=== PATIENT | female | born 1960 | race Hispanic/Latino ===

== ENCOUNTER 2019-01-15 11:22 | Observation (INO) | payer BC ==
[2019-01-14 13:24] VITALS: BP 119/75
[~2019-01-15] VITALS: Ht 160 cm; Wt 67.0 kg
[2019-01-15] VITALS (19 sets, daily range): BP systolic 107–138; BP diastolic 62–90
[~2019-01-15 11:22] MED LIST: AMLO10TA7 PO; ASPI-555 PO; ATOR20TA65 PO; FOLI1TAB15 PO; GOLI50DI SQ; LATA2.5D2 OU; RALO60TA13 PO
[2019-01-15] MEDS ORDERED: LACTATED RINGERS 1000ML 1,000 ML IV ONE (12:53)
[2019-01-15] MEDS ORDERED: BUPIVACAINE/PF 0.25% 30ML VIAL IJ ONE (13:16)
[2019-01-15] MEDS ORDERED: LIDOCAINE HCL 1% 20 ML VIAL ONE (13:17)
[2019-01-15] MEDS ORDERED: BUPIVACAINE/PF 0.5% 30ML VIAL ONE (13:17)
[2019-01-15] MEDS ORDERED: DEXAMETHASONE SOD PHOSPHATE 10MG/ML 1ML VIAL ONE (13:40)
[2019-01-15] MEDS ORDERED: MIDAZOLAM HCL 1 MG/ML 2ML VIAL ONE (13:40)
[2019-01-15] MEDS ORDERED: LIDOCAINE PF 2% 5ML ABBOJECT ONE (13:40)
[2019-01-15] MEDS ORDERED: ONDANSETRON HCL 4 MG/2 ML VIAL ONE (13:40)
[2019-01-15] MEDS ORDERED: PROPOFOL 10 MG/ML 20ML VIAL IV ONE (13:41)
[2019-01-15] MEDS ORDERED: FENTANYL CITRATE PF 50 MCG/1 ML 2ML VIAL ONE (13:42)
[2019-01-15] MEDS ORDERED: CEFAZOLIN SODIUM 1 GM VIAL ONE (15:42)
[2019-01-15] MEDS ORDERED: HYDROCODONE/ACETAMINOPHEN 5/325 MG TAB PO PRN (17:45)
[2019-01-15] MEDS ORDERED: MORPHINE SULFATE 2 MG/ML 1ML SYG IVP PRN (17:45)
--- NOTE | 2019-01-15 19:49 | NUR ---
HOSPITALIST CONSULTATION. NIMA ANN MADE AWARE OF NEW CONSULTATION AT THIS TIME.
[2019-01-15] MEDS: HYDROMORPHONE 1 MG/1 ML AMP IVP PRN (21:57)
--- NOTE | 2019-01-15 23:50 | NUR ---
DR.ROUNDING DR REEVES IN PT ROOM AT THIS TIME. DRESSING TO RIGHT FOOT CHANGED BY , RT FOOT TOES OBSERVED PINK, WARM TO TOUCH. NEW ORDERS RECEIVED BY AT THIS TIME, REFER TO EMR. Addendum: 01/16/19 at 0054 by DINA WESTON RN Amended: Links added.
[2019-01-16] MEDS: HYDROCODONE/ACETAMINOPHEN 5/325 MG TAB PO PRN ×4 (00:28→20:05)
[2019-01-16] MEDS: HYDROMORPHONE 1 MG/1 ML AMP IVP PRN ×3 (02:15→14:18)
[2019-01-16 03:43] VITALS: BP 137/71
[2019-01-16 07:58] VITALS: BP 136/78
[2019-01-16] MEDS ORDERED: ONDANSETRON HCL 4 MG/2 ML VIAL IVP PRN (08:45)
[2019-01-16 11:09] VITALS: BP 148/66
--- NOTE | 2019-01-16 15:30 | NUR ---
INITIAL MET W PT ALONE, NO DISTRESS, KEPT FOR PATIENT CONTORL POST BUNIONECTOMY. PT IS AAOX3, INDP W ADLS; HAS WALKER TO USE RECOVERS, NO STAIRS IN HOME, LIVES WITH SPOUSE WHO WILL PROVIDE TRANSPORT DCP IS HOME, CM TO FOLLOW Addendum: 01/16/19 at 1727 by RENAE ROBERTSON RN CM Amended: Links added.
[2019-01-16 15:51] VITALS: BP 148/71
[2019-01-16 19:30] VITALS: BP 168/94
[2019-01-16] MEDS ORDERED: ATORVASTATIN CALCIUM 20 MG TABLET PO SCH (19:30)
[2019-01-16] MEDS ORDERED: LATANOPROST 2.5 ML DROPS OU SCH (21:00)
[2019-01-17] VITALS: BP 114/76
[2019-01-17] MEDS: HYDROCODONE/ACETAMINOPHEN 5/325 MG TAB PO PRN ×2 (01:42→08:46)
[2019-01-17 04:00] VITALS: BP 116/63
[2019-01-17 07:50] VITALS: BP 149/73
[2019-01-17] MEDS ORDERED: ASPIRIN 81MG TAB.CHEW PO SCH (09:00)
[2019-01-17] MEDS ORDERED: FOLIC ACID 1 MG TABLET PO SCH (09:00)
[2019-01-17] MEDS ORDERED: AMLODIPINE BESYLATE 5 MG TAB PO SCH (09:00)
[2019-01-17] MEDS ORDERED: RALOXIFENE HCL 60 MG TABLET PO SCH (09:00)
--- NOTE | 2019-01-17 09:45 | NUR ---
REFUSED SHOWER OR BED LINEN CHANGE REPORTING TO JROY BETH SHE WAS LEAVING ALREADY AND WAS READY TO GO. PT SAID SHE WOULD SHOWER WHEN SHE GOT HOME.
[2019-01-17] MEDS ORDERED: TYL3 PO (10:06)
[2019-01-17] MEDS ORDERED: IBUP-2077 PO (10:06)
--- NOTE | 2019-01-17 11:28 | NUR ---
[facility] MEDICATION DELIVERED NOW. PT DISCHARGED AND OUT OF HOSPITAL.
== END 2019-01-17 11:22 | disposition home or self-care (01) ==
LOC: DAH 11:22 → DAHIP 11:23 → 4BH 17:54
PROVIDERS: ADMIT Podiatrist; ATTEND Podiatrist
DX: M21.611 Bunion of right foot (principal); M20.41 Other hammer toe(s) (acquired), right foot; E11.9 Type 2 diabetes mellitus without complications; M06.9 Rheumatoid arthritis, unspecified; I10 Essential (primary) hypertension; I25.10 Atherosclerotic heart disease of native coronary artery without angina pectoris; Z91.5 Personal history of self-harm; Z82.49 Family history of ischemic heart disease and other diseases of the circulatory system; Z80.9 Family history of malignant neoplasm, unspecified; Z79.899 Other long term (current) drug therapy
CPT/HCPCS: 28285 ×2; 28292; 73620; 88304; 88311; 96374; 96375 ×2; 96376; 97039; 97116 ×2; 97161; A4649; A4930; A6223; A6446; C1713 ×2; C1729; G0378 ×43; G8978; G8979; G8980; G8981; G8982; G8983; J0690; J1100; J1170 ×3; J2001; J2250; J2405 ×2; J2704; J3010; J3490; J7120